=== PATIENT | male | born 2000 | race Two or more races ===

== ENCOUNTER 2022-02-22 22:33 | Emergency (ER) | payer OTHER, SELFPAY ==
[2022-02-22 22:34] VITALS: PULSE 111; RESP 18; TEMP 36.6; O2SAT 98; BMI 22.4
[2022-02-22 22:40] VITALS: BP 133/73; PULSE 115; RESP 27; O2SAT 96
[2022-02-22] MEDS: MethylPREDNISolone 125 MG/2 ML Vial IV (22:50)
[2022-02-22] MEDS: DiphenhydrAMINE 50 MG/ML Syringe IV (22:50)
[2022-02-22] MEDS: Epi Pen (EQUIV) 0.3 MG Syringe IM (22:58)
[2022-02-22] MEDS: Famotidine 200 MG/20 ML MDV 40 MG in 0.9% Normal Saline (Pres. free 6 ML 300 MG IV (23:04)
[2022-02-23 00:43] VITALS: BP 94/61; PULSE 69; RESP 17; O2SAT 96
[2022-02-23 02:32] VITALS: BP 113/59; PULSE 68; RESP 17; O2SAT 97
--- NOTE | 2022-02-23 02:51 | EDS_ITS ---
HPI History of Present Illness Chief Complaint: Allergic Reaction Narrative Narrative: Patient is a 21-year-old male with past medical history of peanut allergy. He states he was eating some Urdu food this evening that his roommate ordered and then began to feel off. He states that he asked his friends about what was ordered and they informed him that they believed there was peanuts presents in the meal and as time began to pass he felt redness swelling and shortness of breath consistent with his allergic reaction to the food and therefore comes to the hospital for evaluation [facility] Medical History no medical history Home Medications Epi E-Z Pen 02/22/22 [History Last Taken Unknown] prednisone 20 mg tablet 40 mg PO DAILY 5 days #10 tabs 02/23/22 [Rx Last Taken Unknown] Allergy/AdvReac Type Severity Reaction Status Date / Time peanut Allergy Anaphylaxis Verified 02/22/22 22:36 Social History Smoking Status: Never smoker ROS ROS ED Constitutional Constitutional ED: Denies chills or fever(s) ENT ENT ED: Reports sore throat Cardiovascular Cardiovascular: Denies chest pain Respiratory/Chest Respiratory/Chest: Reports dyspnea; Denies cough Gastrointestinal Gastrointestinal: Denies abdominal pain, diarrhea, nausea or vomiting Genitourinary Genitourinary ED: Denies dysuria Musculoskeletal Musculoskeletal: Denies myalgias Integumentary Reports rash Neurologic Neurologic: Denies headache(s) Hematologic/Lymphatic Hematologic/Lymphatic: Denies easy bleeding or easy bruising EXAM Physical Exam Const Vital Signs: 02/22/22 22:34 02/22/22 22:40 02/23/22 00:43 Temperature 97.9 F Temperature Source Temporal Pulse Rate 111 H 115 H 69 Respiratory Rate 18 27 H 17 Blood Pressure 133/73 H 94/61 Blood Pressure Mean 93 72 Pulse Ox 98 96 96 Oxygen Delivery Method Room Air Room Air Room Air 02/23/22 02:32 02/23/22 03:02 Temperature Temperature Source Pulse Rate 68 71 Respiratory Rate 17 16 Blood Pressure 113/59 L 96/74 Blood Pressure Mean 77 Pulse Ox 97 98 Oxygen Delivery Method Room Air Positive well nourished and well developed General Appearance ED: well developed HEENT Reports moist mucous membranes HEENT Narrative: There is mild lip swelling but no tongue swelling no oral lesions no airway edema or compromise Eyes PERRL and EOMs intact bilaterally Neck supple Resp normal respiratory effort and clear to auscultation bilaterally Cardio regular rhythm Rate: tachycardic GI normal to inspection, nondistended, normoactive bowel sounds, non-tender, non- distended and no masses Auscultation: normoactive bowel sounds Palpation: soft Extremity normal to inspection Neuro oriented x3, CN's II-XII intact bilaterally and no sensory deficits noted Sensorium / Orientation: alert Psych mental status grossly normal Skin Skin Narrative: Patient has blanchable erythema across his face neck chest and upper back and there is soft tissue swelling noted of the lips as well as around the orbits consistent with allergic reaction MDM MDM MDM Narrative Medical decision making narrative: Patient presented to the ER approximately 1 hour after his exposure and was satting 98% on room air and had no obvious respiratory distress changes. However as time was progressing he was having worsening redness and swelling and with his known peanut allergy he was given Solu-Medrol Benadryl Pepcid and IM epinephrine. He was watched in the ER for little over 4 hours and his symptoms resolved and there was no rebound. Therefore this time as he is low risk for progressing to respiratory distress since his symptoms have been now controlled for multiple hours he is safe for discharge Discharge Plan Triage Chief Complaint: Allergic Reaction ED Provider: Tesfaye Calderon Dx/Rx/DC Orders Clinical Impression: Acute allergic reaction Instructions: ED General Allergic Reactions Prescriptions: New prednisone 20 mg tablet 40 mg PO DAILY 5 Days Qty: 10 0RF No Action Epi E-Z Pen Primary Care Provider: Care Physician,No Primary Referrals: Olaf Vaca MD [Med Staff - Store Management Trainee] - Care Physician,No Primary [Primary Care Provider] - Activity Restrictions/Additional Instructions: Please continue steroids for the next few days to prevent any flareup of allergic symptoms and return to the ER should you have any further concerns Disposition Disposition: Home, Self Care Discharge Date/Time: 02/23/22 03:03
[2022-02-23 03:02] VITALS: BP 96/74; PULSE 71; RESP 16; O2SAT 98
== END 2022-02-23 03:03 | disposition home or self-care (01) ==
PROVIDERS: Emergency Provider Emergency Medicine; Visit Provider Emergency Medicine
DX: T78.1XXA Other adverse food reactions, not elsewhere classified, initial encounter (principal); X58.XXXA Exposure to other specified factors, initial encounter
CPT/HCPCS: 96372; 96374; 96375; 99283; A4216; J3490